=== PATIENT | female | born 1975 | race Caucasian/White ===

== ENCOUNTER 2017-08-17 06:20 | Inpatient (IN) | payer OTHER ==
[~2017-08-17] VITALS: Ht 165.1 cm; Wt 113.4 kg
[~2017-08-17 06:20] MED LIST: IBUPROFEN800 M1 PO; NOVOLIN N100 UNIT/1 SC; PERCOCET 5-3251 EACH PO; PRENATAL ONE D1 EACH PO; ZANTAC150 M1 PO
--- NOTE | 2017-08-17 09:08 | Operative Report ---
Operative/Inv Procedure Report Surgery Date: 08/17/17 Name of Procedure: #1 Repeat low transverse ceserean section #2 bilateral Nuria type tubal ligation Pre-Operative Diagnosis: Desires repeat undesired fertility Post-Operative Diagnosis: s/p repeat section with tubal ligation Estimated Blood Loss: 300 Surgeon/C Application Developer: Rupesh GAXIOLA,Jonathan Bae MD Anesthesia: block Monitors: fhr 144 bpm Specimens: Right and left tubal segments Complications: None Condition: Good Operative/Procedure Note Note: The patient was taken to the operating room for repeat low transverse section a Hyde catheter was placed in the bladder heart rates are 1 44 bpm in the left lower quadrant the abdomen was prepped the patient was placed in the left lateral tilt. The patient was grounded after checking for the adequacy of anesthesia a Pfannenstiel incision was made over the old incision. Incision was carried down sharply to the fascia which was incised in the midline sharply the incision was carried out laterally sharply. The fascia was then divided from the underlying rectus muscles in the superior and inferior direction sharply the rectus muscle bundles were divided in the midline sharply the peritoneum was entered well above the dome of the bladder in the midline sharply. The uterus was checked for any adhesions and there were none there was a 2cm submucosal fibroid just posterior to the left cornua no other fibroids clearly visable there was a window in the BRIELLE midline. A Bladder flap was created on the lower uterine segment. The lower uterine segment was entered in the midline bluntly and the incision carried out laterally bluntly. The was delivered from the vertex position through clear amniotic fluid the erendira- pharynx was bulb suction and the cord was doubly clamped and cut the infant was handed to the pediatric attendant. The placenta was manually extracted the interior of the uterus was wiped clean with wet laps the uterus was externalized. The uterine incision was closed in 2 layers the first a running locking stitch and the second an imbricating over the first 0 Polysorb sutures were used. Attention was turned to the left uterine tube which was identified by following it to its fimbriated and in a relatively avascular portion a knuckle of tube was developed approximately 2 cm in length . This was doubly tied with oh plain gut and sharply divided sent to pathology for examination both proximal and distal portions of the tube were noted electrocautery was used for hemostasis. Attention was turned to the right uterine tube which was identified by following it to its fimbriated and in a relatively avascular portion a knuckle of tube was developed approximately 2 cm in length . This was doubly tied with 0 plain gut and sharply divided sent to pathology for examination both proximal and distal portions of the tube were noted electrocautery was used for hemostasis The abdominal/peritoneal cavity was irrigated copiously the uterus was returned to its normal anatomical position the incision was once again checked for hemostasis which was judged to be excellent the parietal peritoneum was reapproximated in simple running fashion of 0 Polysorb suture. The fascia was reapproximated with 2 simple running 0 Polysorb sutures overlapping in the midline. Elizabeth's fascia was reapproximated with a 3-0 undyed Polysorb suture in a simple running fashion the skin was closed with alize. Sponge instrument and needle counts were correct 3 estimated blood loss was 300 mL there were no complications no drains left at the end of the procedure was a Hyed catheter to the bladder. Findings: Normal anatomy with one small 2 cm fibroid and a lower uterine segment window
[2017-08-17 09:29] VITALS: BP 118/72
[2017-08-18 09:09] LABS: ABSOLUTE BASOPHIL COUNT 0 /CUMM (0.0-0.2); ABSOLUTE EOSINOPHIL COUNT 0.1 /CUMM (0.0-0.7); ABSOLUTE GRANULOCYTE CT 9.8 /CUMM (1.4-6.5); ABSOLUTE LYMPH COUNT 1.7 /CUMM (1.2-3.4); ABSOLUTE MONOCYTE COUNT 0.5 /CUMM (0.10-0.60); BASOPHIL % 0.3 % (0.0-2.0); EOSINOPHIL % 0.9 % (0-5); MEAN CORPUSCULAR HGB 26.5 PG (27.0-31.0); MEAN CORPUSCULAR HGB CONC 33.2 G/DL (33.0-37.0); MEAN PLATELET VOLUME 9.5 FL (7.4-10.4); PLATELET COUNT 235 /CUMM (130-400); RBC DISTRIBUTION WIDTH 16.1 % (11.5-14.5); RED BLOOD CELL CT 3.42 /CUMM (4.20-5.40); WHITE BLOOD CELL COUNT 12.1 /CUMM (4.8-10.8)
[2017-08-18 09:14] LABS: HEMATOCRIT 27.4 % (37-47)
--- NOTE | 2017-08-18 10:31 | PN- Post Delivery/GYN ---
Subjective Subjective: feeling well, no complaints, tolerate diet, rapp discontinued am, flatus(+) Review of Systems Constitutional: Reports: no symptoms. EENTM: Reports: no symptoms. Cardiovascular: Reports: no symptoms. Respiratory: Reports: no symptoms. Gastrointestinal: Reports: no symptoms. Genitourinary: Reports: see HPI. Musculoskeletal: Reports: no symptoms. Skin: Reports: no symptoms. All Other Systems: Reviewed and Negative Objective Last 24 Hrs of Vital Signs/I&O VSS General: NAD CV RRR Lungs CTA B/L Abdomen: soft, nontender, uterus firm, fundus below umbilicus. incision alize in place, D/C/I, Lochia mild Ext: DCT (-) Current Medications: Current Medications Sig/Ervin Start time Last Medication Dose Route Stop Time Status Admin Acetaminophen 650 MG Q4P PRN 08/17 1015 AC PO Diphenhydramine HCl 25 MG Q6P PRN 08/17 1015 AC IV Diphenhydramine HCl 25 MG Q6P PRN 08/17 0750 DC IV Docusate Sodium 100 MG AT BEDTIME PRN 08/17 1015 AC PO Enoxaparin Sodium 40 MG 2100 08/18 2100 AC 08/17 SC 2033 Hydroxyzine HCl 50 MG AT BEDTIME NEED.. 08/18 0000 AC PO Ibuprofen 800 MG Q6P PRN 08/17 1015 AC 08/18 PO 0756 Ketorolac 30 MG .STK-MED ONE 08/18 0226 DC Tromethamine IM 08/18 0227 Ketorolac 30 MG Q6P PRN 08/17 0750 DC 08/18 Tromethamine IV 08/18 0749 0230 Lactated Ringer's 1,000 ML Q8H 08/17 1015 AC 08/18 IV 0023 Magnesium Hydroxide 30 ML DAILY NEEDED PRN 08/17 1015 AC PO Metoclopramide HCl 10 MG Q6P PRN 08/17 0750 AC IV Naloxone HCl 0.2 MG .Q5MINS PRN 08/17 0750 AC IV Oxycodone/ 1 TAB Q4P PRN 08/17 1015 AC 08/18 Acetaminophen PO 0756 Oxycodone/ 2 TAB Q4P PRN 08/17 1015 AC Acetaminophen PO Oxytocin 20 UNITS Q8H 08/17 1015 DC Lactated Ringer's 1,000 ML IV 08/17 1813 Last 24 Hrs of Labs/Mumtaz: Laboratory Tests 08/18/17 0829: CBC w Diff NO MAN DIFF REQ, RBC 3.42 L, MCV 80.0 L, MCH 26.5 L, MCHC 33.2, RDW 16.1 H, MPV 9.5, Gran % 81.0 H, Lymphocytes % 13.7 L, Monocytes % 4.1, Eosinophils % 0.9, Basophils % 0.3, Absolute Granulocytes 9.8 H, Absolute Lymphocytes 1.7, Absolute Monocytes 0.5, Absolute Eosinophils 0.1, Absolute Basophils 0 Assessment/Plan Assessment/Plan 42yo, s/p RLTCS, POD#1 1. encourage ambulation and 2. pain management as needed 3.RT PP care Problem List: 1. 2. GDM, class A2 Attending MD Review Statement Attending Statement Attending MD Statement: examined this patient, discussed with nursing
--- NOTE | 2017-08-19 10:30 | PN- Post Delivery/GYN ---
Subjective Subjective: feeling well Review of Systems Constitutional: Reports: no symptoms. EENTM: Denies: double vision, visual changes. Cardiovascular: Denies: chest pain. Respiratory: Denies: short of breath. Gastrointestinal: Denies: diarrhea, nausea, vomiting. Neurological/Psychological: Denies: anxiety, depressed. Objective Last 24 Hrs of Vital Signs/I&O vss Physical Exam General Appearance Alert, Oriented X3, Cooperative, No Acute Distress Cardiovascular Regular Rate Lungs Clear to Auscultation Abdomen Soft, incision clean and dry Current Medications: Current Medications Sig/Ervin Start time Last Medication Dose Route Stop Time Status Admin Acetaminophen 650 MG Q4P PRN 08/17 1015 AC PO Diphenhydramine HCl 25 MG Q6P PRN 08/17 1015 AC IV Docusate Sodium 100 MG .STK-MED ONE 08/18 2343 DC PO 08/18 2344 Docusate Sodium 100 MG AT BEDTIME PRN 08/17 1015 AC 08/19 PO 0003 Enoxaparin Sodium 40 MG 2100 08/18 2100 AC 08/18 SC 2100 Hydroxyzine HCl 50 MG AT BEDTIME NEED.. 08/18 0000 AC PO Ibuprofen 800 MG .STK-MED ONE 08/18 2217 DC PO 08/18 2218 Ibuprofen 800 MG .STK-MED ONE 08/18 1538 DC PO 08/18 1539 Ibuprofen 800 MG Q6P PRN 08/17 1015 AC 08/19 PO 0535 Lactated Ringer's 1,000 ML Q8H 08/17 1015 DC 08/18 IV 0023 Magnesium Hydroxide 30 ML DAILY NEEDED PRN 08/17 1015 AC PO Metoclopramide HCl 10 MG Q6P PRN 08/17 0750 AC IV Naloxone HCl 0.2 MG .Q5MINS PRN 08/17 0750 AC IV Oxycodone/ 1 TAB Q4P PRN 08/17 1015 AC 08/19 Acetaminophen PO 0535 Oxycodone/ 2 TAB Q4P PRN 08/17 1015 AC 08/19 Acetaminophen PO 0003 Assessment/Plan Assessment/Plan POD #2 vss afebrile Problem List: 1. GDM, class A2 2. Attending MD Review Statement Attending Statement Attending MD Statement: examined this patient, discussed with nursing
[2017-08-20] MEDS ORDERED: IBUPROFEN800 M1 PO (11:41)
[2017-08-20] MEDS ORDERED: PERCOCET 5-3251 EACH PO (11:41)
--- NOTE | 2017-08-20 11:49 | PN- OBGYN ---
Surgical Brief Attending Note Brief Attending Note: pt feeling well. no bartlett / bv / ruq / epig pain. pain well controlled. afeb, v/ss nad abd soft nt ff inc c/d/i/w/ clips, some overlapping edges chayito min lochia ext nt +2 b/l le ed pod 3 s/p rpt c/s, btl, doing well -d/c home -routine pop care -rt hospital mon for staple removal -rto 2 wks post-op check
== END 2017-08-20 12:15 | DRG 766 ==
LOC: GNO 06:20
PROVIDERS: Obstetrics & Gynecology
PROC: 10D00Z1 Extraction of Products of Conception, Low, Open Approach (ICD-10-PCS; principal; 2017-08-17)
PROC: 0UB70ZZ Excision of Bilateral Fallopian Tubes, Open Approach (ICD-10-PCS; principal; 2017-08-17)
DX: O34.211 Maternal care for low transverse scar from previous cesarean delivery (principal); O24.424 Gestational diabetes mellitus in childbirth, insulin controlled; N85.8 Other specified noninflammatory disorders of uterus; Z3A.39 39 weeks gestation of pregnancy; Z37.0 Single live birth; Z30.2 Encounter for sterilization
CPT/HCPCS: GNOS; 36415; 87086; 88302; 88307; J0690; J1650; J1885; J7120